=== PATIENT | female | born 1950 | race Two or more races ===

== ENCOUNTER 2023-02-04 07:33 | Outpatient (CLI) | payer OTHER | END 2023-02-04 07:44 | disposition home or self-care (01) | LOC: TOM 07:33 | PROVIDERS: ATTEND Internal Medicine Gastroenterology | DX: K56.609 Unspecified intestinal obstruction, unspecified as to partial versus complete obstruction (principal); K63.5 Polyp of colon; Z80.0 Family history of malignant neoplasm of digestive organs ==